=== PATIENT | female | born 1935 | race Caucasian/White ===

== ENCOUNTER → 2020-12-21 | Outpatient (CLI) | payer OTHER ==
[~2020-12-21] MED LIST: PAXIL10 MG PO; TEGRETOL200 MG PO; VALIUM2 MG PO; ZOCOR40 MG PO
== END ==
LOC: HYPER 09:13
PROVIDERS: ATTEND Emergency Medicine
DX: S51.801A Unspecified open wound of right forearm, initial encounter (principal); S05.8X1A Other injuries of right eye and orbit, initial encounter; S61.402A Unspecified open wound of left hand, initial encounter; S01.111A Laceration without foreign body of right eyelid and periocular area, initial encounter; S61.412A Laceration without foreign body of left hand, initial encounter; S41.111A Laceration without foreign body of right upper arm, initial encounter; S40.021A Contusion of right upper arm, initial encounter; R60.0 Localized edema; F41.9 Anxiety disorder, unspecified; F32.9 Major depressive disorder, single episode, unspecified; Z79.899 Other long term (current) drug therapy; Z98.890 Other specified postprocedural states; X58.XXXA Exposure to other specified factors, initial encounter; Y93.89 Activity, other specified; Y92.89 Other specified places as the place of occurrence of the external cause; Y99.8 Other external cause status